=== PATIENT | male | born 1945 | race Caucasian/White ===

== ENCOUNTER 2022-08-01 11:31 | Outpatient (CLI) | payer MEDICARE, SELFPAY | END 2022-08-01 11:32 | disposition home or self-care (01) | PROVIDERS: PCP Physician Assistant Medical; Visit Provider Physician Assistant Medical | DX: E53.8 Deficiency of other specified B group vitamins (principal); G25.81 Restless legs syndrome; G47.00 Insomnia, unspecified; Z79.899 Other long term (current) drug therapy | CPT/HCPCS: 82306; 82607; 84443 ==

== ENCOUNTER 2022-10-08 11:56 | Outpatient (CLI) | payer MEDICARE, SELFPAY | END 2022-10-08 11:57 | disposition home or self-care (01) | LOC: FRMREF 11:56 | PROVIDERS: PCP Physician Assistant Medical; Visit Provider Physician Assistant Medical | DX: Z01.818 Encounter for other preprocedural examination (principal); C61 Malignant neoplasm of prostate | CPT/HCPCS: 84153 ==

== ENCOUNTER 2022-10-09 13:19 | Outpatient (RCR) | payer MEDICARE, SELFPAY ==
--- NOTE | 2022-10-09 15:11 | PT.OPE ---
PT [facility] Outpatient Eval PT [facility] Outpatient Eval Start: 10/09/22 14:55 Freq: Status: Active Protocol: Document 10/09/22 14:58 HERB (Rec: 10/09/22 15:11 HERB [id number]) E-signed By Kam Troy, PT, ATC Physical Therapy Outpatient Evaluation Insurance Information Insurance Name Medicaid Medical Diagnosis Z96.652 Presence of L artificial knee joint M17.12 L knee OA Treating Diagnosis L knee pain, stiffness Compensated ADL's and transfer ability Referring MD Chang Subjective Subjective Yao reports his readiness for his L TKA procedure on 10/14/22 . Although it's been feeling a bit better as of late, he still struggles with most ADL' s, transfers and walking distances > 150 feet. His will be available to provide any assistance needed following his TKA procedure next week. Pain Comments 08/31 Date of Last Physician Visit 09/20/22 Date of Surgery (If applicable) 10/14/22 Current Work Status Retired Preferred Name Yao Precautions Treatment Precautions/Contraindications Daily migraine WATERS's Weight Bearing Status Full Weight Bearing Therapy Limitations/Systems Review Not Limited Objective Range of Motion R 4-130, L 4-125 degrees flexion Strength L knee EXT 5-/5, limited by discomfort. Swelling Generalized swelling surrounding L knee Palpation Sore/tender along anteromedial jointline. Balance & Gait Walks without much trunk rotation or UE swing. Shortened L LE stride length. 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 He is scheduled for his L TKA procedure at [facility] 10/14/22. His advanced OA in the L knee joint is not responding to injection therapy as it had causing repeated knee pain and difficulty with most squatting , climbing and walking activities. He appears eager for his surgery and competent with the expectations for pain , recovery and exercise. Skilled PT is recommended to address his pre-operative expectations, pain control, exercises and use of assistive device. Outpatient therapy will be essential to allow him return to independent self care and personal activities. Primary Functional Limitations Standing Walking Transfers Plan of Care Rehabilitation Potential Good Physical Therapy Goals Pre-op goals: 1.To demonstrate independence with his TKA protocol ex.s for AAROM and strength. 2.To demonstrate safe and correct assistive device- wheeled walker performance. Coordination/Communication With Referral Source Frequency/Duration 1x pre-op Up to 20 visits post-op PT Patient Will Be Discharged From Therapy Independent w/HEP, Independently Progressing Evaluation Billing Untimed Code Treatment Minutes 30 PT Eval No Charge No Complexity Low Certification Information Initial Certification Date 10/09/22 Ending Certification Date 01/09/23 Provider Signature Shows Agreement With POC & Medical Necessity Physician Signature & Date Requested Please Sign/Date Here Physician Comment/Change : Physician NPI Number #
== END 2023-02-06 23:59 | disposition home or self-care (01) ==
PROVIDERS: PCP Physician Assistant Medical; Visit Provider Orthopaedic Surgery Sports Medicine
DX: M17.12 Unilateral primary osteoarthritis, left knee (principal); M25.562 Pain in left knee; Z51.89 Encounter for other specified aftercare; M25.60 Stiffness of unspecified joint, not elsewhere classified
CPT/HCPCS: 97110; 97161

== ENCOUNTER 2023-10-29 10:34 | Outpatient (CLI) | payer MEDICARE, SELFPAY ==
--- NOTE | 2023-10-29 11:00 | CRLHL7_ITS ---
For Patients: As a result of the Century Cures Act, medical imaging exams and procedure reports are released immediately into your electronic medical record. You may view this report before your referring provider. If you have questions, please contact your health care provider. INDICATION: PE found on 09/24/2023, follow-up. TECHNIQUE: CT chest PE was acquired with 100 cc Omnipaque 350 IV contrast. COMPARISON: CT PE 09/24/2023. FINDINGS: Heart and vasculature: Contrast opacification of the pulmonary arterial tree is adequate. Previously noted pulmonary emboli are no longer seen. Heart size is normal. Thoracic aorta and pulmonary artery are normal in caliber. Lungs and pleura: Scattered areas of atelectasis/scarring, including likely round atelectasis in the lung bases. Bronchial wall thickening, which can be seen with reactive airways. No pneumothorax or pleural effusion. Bilateral calcified pleural plaques, left greater than right, which can be seen with prior asbestos exposure. Lymph nodes/mediastinum: Calcified mediastinal lymph nodes, likely sequela prior granulomatous disease. Chest wall: Bilateral gynecomastia. Upper abdomen: Calcified granulomas in the spleen. Gallbladder is absent. Nonobstructing nephroliths in the kidneys. Bones: Chronic compression deformity of T3 and T7. Mild degenerative disease of the spine. IMPRESSION: Previously noted pulmonary emboli are no longer seen. Please note that all CT scans at this facility use dose modulation, iterative reconstruction, and/or weight-based dosing when appropriate to reduce radiation dose to as low as reasonably achievable. Dictated by Pamela Kessler MD @ 10/29/2023 1:40:18 PM (Electronically Signed)
== END 2023-10-29 10:35 | disposition home or self-care (01) ==
LOC: CT 10:34
PROVIDERS: PCP Physician Assistant Medical; Visit Provider Physician Assistant Medical
DX: I26.99 Other pulmonary embolism without acute cor pulmonale (principal)
CPT/HCPCS: 71275; Q9967

== ENCOUNTER 2024-03-12 13:45 | Outpatient (RCR) | payer MEDICARE, SELFPAY ==
--- NOTE | 2023-09-15 10:36 | PC.NURSE ---
Diagnosis: prostate cancer
--- NOTE | 2023-09-15 16:19 | URNOTE ---
Per [facility], Degarelix ([id number]) has been approved 09/15/2023-09/14/2024. Ref #[id number]
[2023-09-16 14:59] VITALS: BP 142/85; PULSE 72; RESP 18; TEMP 36.7; O2SAT 98
[2023-09-16 16:15] LABS: PSA Diagnostic* 2.09 ng/mL (0.10-4.00)
[2023-09-18 19:56] LABS: Testosterone, Adult Male 203 ng/dL (300-720)
--- NOTE | 2023-10-01 10:41 | URNOTE ---
Leuprolide (J9217) 7.5mg has been approved by [facility]. 10/14/2023-10/13/2024. REf #[id number]
--- NOTE | 2023-10-02 11:04 | ONC.NURNOTE ---
LM on phone to have patient call office to schedule injection.
[2023-10-15 10:35] LABS: Basophils Absolute Auto 0.02 K/uL (0.00-0.30); Basophils Percent Auto 0.4 % (0.0-3.0); Eosinophils Absolute Auto 0.18 K/uL (0.00-0.50); Hematocrit 44.4 % (37.0-53.0); Hemoglobin* 13.9 gm/dL (13.5-17.5); Immature Granulocytes Abs Auto 0.02 K/uL (0.00-0.30); Immature Granulocytes Pct Auto 0.4 %; Mean Corpuscular HGB Conc 31 gm/dL (32-36); Mean Corpuscular Hemoglobin 29 pg (26-34); Mean Corpuscular Volume 92 fL (80-100); Monocytes Percent Auto 11.6 % (0.0-11.0); Neutrophils Absolute Auto 2.86 K/uL (1.7-7.0); Neutrophils Percent Auto 63.6 % (42.0-72.0); Platelet Count* 155 K/uL (140-440); RDW Coefficient of Variation % 15.2 % (11.5-15.5); Red Blood Count 4.81 m/uL (4.30-5.90)
[2023-10-15 10:40] LABS: Slide Review Reflex No
[2023-10-15 10:52] LABS: Chloride* 104 mmol/L (96-114); Potassium* 4.2 mmol/L (3.6-5.1); Sodium* 138 mmol/L (135-149)
[2023-10-15 10:54] LABS: Creatinine* 0.9 mg/dL (0.5-1.5); Estimated Glomerular Filt Rate 87 ml/min
[2023-10-15 10:55] LABS: Alanine Aminotransferase* 14 U/L (4-50); Alkaline Phosphatase* 92 U/L (40-150); Anion Gap 5 mEq/L (7-15); Aspartate Amino Transferase* 22 U/L (12-35); Bilirubin Direct* 0.3 mg/dL (0.0-0.5); Bilirubin Total* 0.4 mg/dL (0.1-1.5); Blood Urea Nitrogen* 18 mg/dL (7-30); Calcium* 9.1 mg/dL (8.4-10.6); Carbon Dioxide* 29 mmol/L (20-32); Glucose* 114 mg/dL (60-115)
--- NOTE | 2023-10-16 13:52 | URNOTE ---
Addendum entered by Cathie Onofre RN 01/13/24 09:28: This auth is not longer valid. Original Note: Kathryn ([id number]) has been approved 10/16/2023-10/15/2024. Auth #[id number]
[2023-10-17 08:09] LABS: Testosterone, Adult Male 11 ng/dL (300-720)
[2023-10-20 10:25] VITALS: BP 116/64; PULSE 68; RESP 16; TEMP 36.4; O2SAT 95
[2023-10-20] MEDS: DEGARELIX ACETATE 80 MG INJ SUBCUT (11:05)
--- NOTE | 2023-10-20 11:35 | ONC.NURNOTE ---
[facility] Contact Info Pt receives treatment from clinic in [place], [place] over the winter. He will have labs/Firmagon 12/15/[address] Vela 12/18/23, then transition to [place] in December. [facility] [address] [address]
[2023-11-17 10:12] VITALS: BP 107/70; PULSE 60; RESP 16; TEMP 35.9; O2SAT 96
[2023-11-17] MEDS: DEGARELIX ACETATE 80 MG INJ SUBCUT (10:35)
[2023-12-15 09:54] VITALS: BP 123/75; PULSE 60; RESP 16; TEMP 36.4; O2SAT 97
[2023-12-15] MEDS: DEGARELIX ACETATE 80 MG INJ SUBCUT (10:12)
[2023-12-15 11:04] LABS: PSA Diagnostic* 0.23 ng/mL (0.10-4.00)
[2024-03-12 14:41] LABS: Creatinine* 0.9 mg/dL (0.5-1.5); Estimated Glomerular Filt Rate 87 ml/min
--- NOTE | 2024-03-12 16:15 | ONC.NURNOTE ---
Here for lab draw- requested information on abiraterone marine underwriter provided printed handout, and info about [facility] for medication dispensing option is high copay through the Specialty Pharmacy
== END 2024-03-14 23:59 | disposition home or self-care (01) ==
LOC: CCIC 13:45
PROVIDERS: Clinical Nurse Specialist; Internal Medicine Hematology & Oncology; PCP Physician Assistant Medical; Referring Provider Physician Assistant Medical; Visit Provider Physician Assistant
DX: C61 Malignant neoplasm of prostate (principal); Z51.81 Encounter for therapeutic drug level monitoring
CPT/HCPCS: 36415; 80053; 80076; 82565; 84153; 84403; 85025; 96401; 99203; 99205; 99211; 99215; G0463; J9155

== ENCOUNTER 2024-09-09 11:00 | Outpatient (RCR) | payer MEDICARE, SELFPAY ==
[2024-03-15 09:34] LABS: Albumin* 3.8 g/dL (3.3-5.0); Chloride* 107 mmol/L (96-114); Sodium* 138 mmol/L (135-149)
[2024-03-15 09:36] LABS: Creatinine* 0.9 mg/dL (0.5-1.5); Estimated Glomerular Filt Rate 86 ml/min
[2024-03-15 09:37] LABS: Alanine Aminotransferase* 19 U/L (4-50); Alkaline Phosphatase* 89 U/L (40-150); Anion Gap 2 mEq/L (7-15); Aspartate Amino Transferase* 32 U/L (12-35); Bilirubin Total* 0.4 mg/dL (0.1-1.5); Blood Urea Nitrogen* 17 mg/dL (7-30); Calcium* 9.1 mg/dL (8.4-10.6); Carbon Dioxide* 29 mmol/L (20-32); Glucose* 125 mg/dL (60-115); Total Protein* 6.8 g/dL (6.0-8.3)
--- NOTE | 2024-03-16 06:54 | URNOTE ---
Kathryn ([id number]) has been approved 03/18/2024-03/18/2025. Auth #[id number].
[2024-03-18 13:41] LABS: Basophils Absolute Auto 0.01 K/uL (0.00-0.30); Basophils Percent Auto 0.1 % (0.0-3.0); Eosinophils Absolute Auto 0.01 K/uL (0.00-0.50); Eosinophils Percent Auto 0.1 % (0.0-7.0); Hematocrit 44.2 % (37.0-53.0); Hemoglobin* 14.2 gm/dL (13.5-17.5); Immature Granulocytes Abs Auto 0.02 K/uL (0.00-0.30); Immature Granulocytes Pct Auto 0.2 %; Lymphocytes Percent Auto 10.3 % (20-44); Mean Corpuscular HGB Conc 32 gm/dL (32-36); Mean Corpuscular Hemoglobin 30 pg (26-34); Mean Corpuscular Volume 95 fL (80-100); Neutrophils Percent Auto 84.3 % (42.0-72.0); Platelet Count* 200 K/uL (140-440); RDW Coefficient of Variation % 15.1 % (11.5-15.5); Red Blood Count 4.67 m/uL (4.30-5.90); White Blood Count* 8.15 K/uL (4.50-11.00)
[2024-03-18 13:43] LABS: Slide Review Reflex No
[2024-03-18] MEDS: DEGARELIX ACETATE 80 MG INJ SUBCUT (14:33)
--- NOTE | 2024-03-18 16:06 | ONC.NURNOTE ---
Addendum entered by Eryn Yañez RN 03/23/24 12:22: Abiraterone has been ordered from [facility] Once patient receives following needs to be set up: Q 2 week lab X 2 month RTC in early July when returns from [place] patient will have New insurance coverage starting 03/24/24, once he receives the cards, functional tester typewriters will start on a PA for abiraterone to be processed Original Note: Teaching on new start of abiraterone reviewed drug handout, self care at home, safe handling and disposal, calling and going to Er with fever/ after hours management/ dose and administration of pred and abiraterone After discussion with patient and about options for drug dispensing- specialty pharmacy via part D insurance or [facility] without insurance- patients insurance changes from [facility] to [facility] on 03/24/24 -patient decided to get the first fill through [facility] and then after the new year will send RX to his new insurance that starts on 03/24/24- patient does not have his insurance cards yet - patient is leaving for [place] mid March and will be seeing med Onc in [place] for drug monitoring until July when he returns -clinic RN to fax Sweetie's note with treatment plan to Onc in [place] -patient will stop once before leaving to picker / packer Sweetie's note and lab orders and bring new insurance cards to be entered into EMR
--- NOTE | 2024-03-18 16:33 | ONC.NURNOTE ---
Patient here for provider visit following scan and labs in [place]. He is requesting that information from today be sent to [facility]. Note from provider, along with administration record of injection faxed to [phone]. Patient is aware that he needs to make an appointment in [place] for his labs two weeks after starting new medication and will follow with their team while he is residing in [place].
--- NOTE | 2024-03-29 16:05 | ONC.NURNOTE ---
patient was called to follow up on status of starting abiraterone Yao reports that he had forwarded his mail to [place] and the abiraterone was thus sent to his [place] address- he will be in [place] later next week Yao is going to try to order a refill through [facility] pharmacy with shipment to his [place] address- if this is unsuccessful then he will delay start of abiraterone until he gets to [place] next lab and follow up MD appts still need to be set up
--- NOTE | 2024-04-07 12:57 | ONC.NURNOTE ---
Phone call to patient: he arrived in [place] he has his abiraterone but has not been able to get his prednisone through his pharmacy- for unknown reasons he can order prednisone through [facility]- $10 for 90 days patient is agreeable to this plan discussed that he can not start abiraterone with out the prednisone- he will need to wait for the shipment he has an appt at [facility] next week. this parts data writer will call and confirm that they have received the most recent provider note with the plan for abiraterone
--- NOTE | 2024-04-16 10:23 | ONC.NURNOTE ---
Addendum entered by Eryn Yañez RN 04/16/24 10:27: patient advised to call in June for July follow up when he returns from [place] Original Note: Baseline labs received from [place] Yao started the abiraterone and prednisone today follow up appt with Med Onc at [place] on 04/20/24 discussed routine Q 2 wk lab X 2-3 months- [facility] should be ordering after appt next week
--- NOTE | 2024-05-24 09:33 | ONC.NURNOTE ---
Patient with myasthenia gravis and has completed first course of Vyvagent he is asking if this is an infusion he can get in [place] currently under the care of Dr Henderson at [facility] in [place]- ph [phone] he will be due for his 2nd course early July- patient understands that he needs to establish care with local neurology when he returns he has been to [facility] and is going to reach out to their clinic typewriter repairer will review with Gabriela if Vyvagent is an option to infuse at [facility]
--- NOTE | 2024-07-08 10:41 | URNOTE ---
Request received for authorization for Vyvgart (efgartigimod nadine-fcab(J9332)approved for 1200mg 1xweekly for 4 weeks, total 4 doses. Prior authorization is approved per [facility] date range: 07/22/2024 to 10/22/2024, Auth#[id number].
--- NOTE | 2024-07-09 11:38 | ONC.NURNOTE ---
Called pt today to check in and let him know his Vyvgart has been approved at [facility]. RN scheduled Yao for 4 weekly infusions starting on 08/06/2024 at [facility]. Pt shares that he saw his neurologist (Dr. Henderson) in [place] yesterday, 07/08/2024. RN requested that office note today. Pt is seeing Dr. Baldo Dong at [facility] in [place] on 08/04/2024 to establish care in [place]. Yao shares that Dr. Henderson offered the option to do home injections with a prefilled syringe. That office is looking into insurance coverage of that. If covered, pt will call to cancel [facility] infusions.
[2024-08-12 10:38] VITALS: BP 131/81; PULSE 69; RESP 16; TEMP 36.3; O2SAT 96
[2024-08-12 10:44] LABS: Basophils Percent Auto 0.5 % (0.0-3.0); Eosinophils Percent Auto 2.6 % (0.0-7.0); Hematocrit 45.5 % (37.0-53.0); Lymphocytes Percent Auto 29.2 % (20-44); Mean Corpuscular HGB Conc 33 gm/dL (32-36); Mean Corpuscular Hemoglobin 31 pg (26-34); Mean Corpuscular Volume 93 fL (80-100); Monocytes Percent Auto 8.3 % (0.0-11.0); Neutrophils Percent Auto 59.4 % (42.0-72.0); Platelet Count* 182 K/uL (140-440); White Blood Count* 4.24 K/uL (4.50-11.00)
[2024-08-12] MEDS: DEGARELIX ACETATE 80 MG INJ SUBCUT (10:51)
[2024-08-12 10:52] LABS: Albumin* 4.4 g/dL (3.3-5.0); Chloride* 108 mmol/L (96-114); Potassium* 4.4 mmol/L (3.6-5.1); Sodium* 139 mmol/L (135-149)
[2024-08-12 10:55] LABS: Alanine Aminotransferase* 22 U/L (4-50); Anion Gap 6 mEq/L (7-15); Aspartate Amino Transferase* 35 U/L (12-35); Blood Urea Nitrogen* 16 mg/dL (7-30); Carbon Dioxide* 25 mmol/L (20-32); Creatinine* 0.9 mg/dL (0.5-1.5); Est. Creatinine Clearance* 53.17; Estimated Glomerular Filt Rate 86 ml/min; Total Protein* 7.6 g/dL (6.0-8.3)
[2024-08-12 10:56] LABS: Alkaline Phosphatase* 83 U/L (40-150); Calcium* 9.3 mg/dL (8.4-10.6); Glucose* 102 mg/dL (60-115); Slide Review Reflex No
[2024-09-09 11:00] VITALS: BP 119/78; PULSE 60; RESP 17; TEMP 36.8; O2SAT 96
[2024-09-09] MEDS: DEGARELIX ACETATE 80 MG INJ SUBCUT (11:40)
[2024-09-09 11:42] LABS: Basophils Percent Auto 0.3 % (0.0-3.0); Eosinophils Percent Auto 1.3 % (0.0-7.0); Hematocrit 42.8 % (37.0-53.0); Hemoglobin* 14.2 gm/dL (13.5-17.5); Lymphocytes Percent Auto 15.7 % (20-44); Mean Corpuscular HGB Conc 33 gm/dL (32-36); Mean Corpuscular Hemoglobin 31 pg (26-34); Mean Corpuscular Volume 94 fL (80-100); Monocytes Percent Auto 9.4 % (0.0-11.0); Neutrophils Percent Auto 73.3 % (42.0-72.0); Platelet Count* 171 K/uL (140-440); RDW Coefficient of Variation % 15.1 % (11.5-15.5); Red Blood Count 4.54 m/uL (4.30-5.90); White Blood Count* 3.83 K/uL (4.50-11.00)
[2024-09-09 11:49] LABS: Slide Review Reflex No
[2024-09-09 11:55] LABS: Albumin* 4.4 g/dL (3.3-5.0); Chloride* 105 mmol/L (96-114)
[2024-09-09 11:56] LABS: Potassium* 4.4 mmol/L (3.6-5.1); Sodium* 138 mmol/L (135-149)
[2024-09-09 11:58] LABS: Alanine Aminotransferase* 15 U/L (4-50); Alkaline Phosphatase* 61 U/L (40-150); Anion Gap 3 mEq/L (7-15); Aspartate Amino Transferase* 24 U/L (12-35); Bilirubin Total* 0.7 mg/dL (0.1-1.5); Blood Urea Nitrogen* 19 mg/dL (7-30); Carbon Dioxide* 30 mmol/L (20-32); Creatinine* 0.9 mg/dL (0.5-1.5); Est. Creatinine Clearance* 53.17; Estimated Glomerular Filt Rate 86 ml/min; Total Protein* 6.5 g/dL (6.0-8.3)
[2024-09-09 11:59] LABS: Calcium* 9.7 mg/dL (8.4-10.6); Glucose* 105 mg/dL (60-115)
[2024-09-09 12:35] LABS: PSA Diagnostic* < 0.06 ng/mL (0.10-4.00)
--- NOTE | 2024-09-14 10:00 | ONC.NURNOTE ---
lab results reviewed by provider and called to Yao noted stable and WNL, bili slightly improved, next lab in 4 weeks
== END 2024-09-14 23:59 | disposition home or self-care (01) ==
LOC: CCIC 11:00
PROVIDERS: Clinical Nurse Specialist; Physician Assistant; PCP Physician Assistant Medical; Referring Provider Physician Assistant Medical; Visit Provider Internal Medicine Hematology & Oncology
DX: C61 Malignant neoplasm of prostate (principal); Z19.1 Hormone sensitive malignancy status; C77.9 Secondary and unspecified malignant neoplasm of lymph node, unspecified; G70.00 Myasthenia gravis without (acute) exacerbation
CPT/HCPCS: 36415; 80053; 84153; 85025; 96402; 99214; 99215; G0463; J9155

== ENCOUNTER 2024-12-09 11:00 | Outpatient (RCR) | payer MEDICARE, SELFPAY ==
[2024-08-13 10:22] VITALS: BP 127/79; PULSE 77; RESP 17; TEMP 36.7; O2SAT 95
[2024-08-13] MEDS: SODIUM CHLORIDE 0.9 % (FLUSH) 10 ML SYRINGE IVF (10:59)
[2024-08-13] MEDS: HYDROCORTISONE SOD SUCCINATE 50 MG/ML inj 100 MG IVP (11:00)
[2024-08-13] MEDS: ACETAMINOPHEN 325 MG TABLET 650 MG PO (11:01)
[2024-08-20 10:01] VITALS: BP 115/73; PULSE 64; RESP 16; TEMP 36.2; O2SAT 95
[2024-08-20] MEDS: SODIUM CHLORIDE 0.9 % (FLUSH) 10 ML SYRINGE IVF (10:29)
[2024-08-20] MEDS: HYDROCORTISONE SOD SUCCINATE 50 MG/ML inj 100 MG IVP (10:29)
[2024-08-20] MEDS: ACETAMINOPHEN 325 MG TABLET 650 MG PO (10:29)
--- NOTE | 2024-08-23 15:15 | ONC.NURNOTE ---
Abiraterone refill submitted to [facility] was completed via covermymeds and approved from 05/23/24-08/21/25 per [facility]- they can dispense- they need to order the medication in there is a $0 copay Yao was notified
[2024-08-27 10:06] VITALS: BP 129/76; PULSE 55; TEMP 36.2; O2SAT 97
[2024-08-27] MEDS: LORATADINE 10 MG TABLET PO (10:55)
[2024-08-27] MEDS: ACETAMINOPHEN 325 MG TABLET 650 MG PO (10:55)
[2024-08-27] MEDS: SODIUM CHLORIDE 0.9 % (FLUSH) 10 ML SYRINGE IVF (11:05)
--- NOTE | 2024-08-27 15:14 | ONC.NURNOTE ---
Clarification pending with Reilly Juárez dosinst two doses were 1200mg. Per new set of orders, 10 mg/kg ~ 1040 mg. Per pharmacy, comes in 400 mg vials; would need to waste part of vial to adjust dose down. Per [place] records, pt was receiving adjusted dose. Proceeded on August 27 (3rd dose) with 1200mg. Question: recalculate dose with each visit or continue 1200mg dose? 2) Premeds: Pt has been receiving Tylenol and Hydrocortisone as premeds 1st two doses here; tolerated well. Per new orders, premeds changed to Tylenol and Claritin. August 27 (3rd) dose given with Tylenol/Claritin; tolerated well at infusion visit. Question: confirm omission of hydrocortisone?
[2024-09-03 10:12] VITALS: BP 134/76; PULSE 58; RESP 18; TEMP 35.7; O2SAT 97
[2024-09-03] MEDS: LORATADINE 10 MG TABLET PO (10:38)
[2024-09-03] MEDS: SODIUM CHLORIDE 0.9 % (FLUSH) 10 ML SYRINGE IVF (10:39)
[2024-09-03] MEDS: ACETAMINOPHEN 325 MG TABLET 650 MG PO (10:39)
[2024-11-19] MEDS: SODIUM CHLORIDE 0.9 % (FLUSH) 10 ML SYRINGE IVF ×2 (14:30→15:55)
[2024-11-19] MEDS: ACETAMINOPHEN 325 MG TABLET 650 MG PO (14:31)
[2024-11-19] MEDS: LORATADINE 10 MG TABLET PO (14:31)
[2024-11-19 14:59] VITALS: BP 128/82; PULSE 65; RESP 18; TEMP 36.6; O2SAT 98
[2024-11-25 10:56] VITALS: BP 147/81; PULSE 60; RESP 16; TEMP 36.6; O2SAT 98
[2024-11-25] MEDS: SODIUM CHLORIDE 0.9 % (FLUSH) 10 ML SYRINGE IVF (11:50)
[2024-11-25] MEDS: ACETAMINOPHEN 325 MG TABLET 650 MG PO (11:50)
[2024-11-25] MEDS: LORATADINE 10 MG TABLET PO (11:51)
[2024-12-09 10:54] VITALS: BP 153/71; PULSE 69; RESP 17; TEMP 36.6; O2SAT 98
[2024-12-09] MEDS: LORATADINE 10 MG TABLET PO (11:16)
[2024-12-09] MEDS: SODIUM CHLORIDE 0.9 % (FLUSH) 10 ML SYRINGE IVF (11:16)
[2024-12-09] MEDS: ACETAMINOPHEN 325 MG TABLET 650 MG PO (11:16)
--- NOTE | 2024-12-23 09:32 | ONC.NURNOTE ---
Addendum entered by Eryn Yañez RN 12/28/24 10:32: 04/21/[address] Jerri Olson at [facility] in [facility] due for Salima this day ph [phone] fax [phone] Original Note: Per pt request, orders, MD note, demographics, and insurance info was sent to [facility] in [place] as he is vacationing there 03/24/2025-06/05/2025. This is for [facility] ONLY. Pt will have his neurologist send orders for his MG treatment.
== END 2025-02-09 23:59 | disposition home or self-care (01) ==
LOC: CCIC 11:00
PROVIDERS: PCP Physician Assistant Medical; Referring Provider Physician Assistant Medical; Visit Provider Clinical Nurse Specialist
DX: G70.00 Myasthenia gravis without (acute) exacerbation (principal)
CPT/HCPCS: 96375; 96413; A9270; J1720; J7050; J9332